=== PATIENT | male | born 1940 | race Caucasian/White ===

== ENCOUNTER 2016-08-07 10:51 | Day surgery (SDC) | payer MEDICARE, OTHER ==
[2016-08-03 09:58] LABS: HEMATOCRIT 44.5 % (40.0-51.0); HEMOGLOBIN 14.8 g/dL (13.6-17.8)
[2016-08-03 10:10] LABS: BUN (BLOOD UREA NITROGEN) 6 MG/DL (6-23); CALCIUM, SERUM 8.5 MG/DL (8.5-10.4); CHLORIDE, SERUM 106 MMOL/L (96-112); CO2 (CARBON DIOXIDE) 28 MMOL/L (24-34); CREATININE 1.03 MG/DL (0.70-1.30); GFR AFRICAN AMERICAN 82 ML/MIN (>=60); GFR NON AFRICAN AMERICAN 71 ML/MIN (>=60); GLUCOSE, SERUM 206 MG/DL (60-99); POTASSIUM, SERUM 4.8 MMOL/L (3.5-5.3); SODIUM, SERUM 141 MMOL/L (135-148)
--- NOTE | ~2016-08-07 | OP ---
Record Of Operation [facility] [address] [place]. [address] NAME: TAMARA BARGER : 42 STATUS : REG [facility] PAT#: [id number] AGE: 76 ADM/REG DATE : 08/07/16 MR#: [id number] REPORT SERV DATE: 08/07/16 DICTATED BY: Wesley FAJARDO DATE: 08/07/16 REPORT STATUS : Draft TRANSCRIBED BY: GIORGIO DATE: 08/07/16 DATE OF PROCEDURE: PREOPERATIVE DIAGNOSIS: Elevated prostate specific antigen. POSTOPERATIVE DIAGNOSIS: Elevated prostate specific antigen, benign prostatic hyperplasia. PROCEDURE: Transrectal ultrasound-guided needle biopsy of the prostate. SURGEON: Wesley Fajardo M.D. ANESTHESIA: MAC. COMPLICATIONS: None. DRAINS: None. BRIEF HISTORY: Mr. Barger is a 76-year-old white male, who underwent biopsy for an elevated PSA on 07/18/2015. 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 His gland measured 45 mL at that time. He is here for followup. 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 Recent PSA is 6.24. The risks of bleeding, infection, anesthesia, injury to adjacent organs, inability to detect the prostate cancer even if present were all discussed. There were no unanswered questions. DESCRIPTION OF PROCEDURE: Under excellent MAC anesthesia, the patient was placed in the left lateral decubitus position. Transrectal ultrasonography was performed and the prostate was enlarged since last year measuring 83 mL, which is quite a jump. One of these, I suspect this an error, but today's measurements looked good. At any rate, there was also some central calcifications. I used the biopsy gun to perform a total of 14 biopsies two from the left base, three from the left mid gland, two from the left apex, and similarly two from the right base, three from the right mid gland, and two from the right apex. The patient tolerated the procedure well and will be discharged in outpatient with the following instructions. DISCHARGE INSTRUCTIONS: 1. Home today. 2. Call for excessive bleeding or fever greater than 101. 3. Followup in my office in one week to review pathology. AL/GIORGIO Wesley Fajardo M.D. Record Of Operation [address] [address] NAME: TAMARA BARGER : 42 STATUS : REG [facility] PAT#: [id number] AGE: 76 ADM/REG DATE : 08/07/16 MR#: [id number] REPORT SERV DATE: 08/07/16 DICTATED BY: Wesley FAJARDO DATE: 08/07/16 REPORT STATUS : Draft TRANSCRIBED BY: VILMAL DATE: 08/07/16 / [id number] CC: Rufus Mathew M.D.
[~2016-08-07 10:51] MED LIST: ANOROELLIPTA INH; ASAB PO; CLOBETASOL0.051 EX; DONNATA1 OR; DONNATAL TAB1 TAB OR; FISH-EPA1000 MG PO; FLOMAX4 PO; FLONASE NAS; GLUCPH PO; HALF81 PO; METAMUCIL CAN7 OZ PO; MIRALAXPKT PO; NEXIUM40 PO; NITROSTAT0.4 MG SL; PRAVACHOL40 MG PO; PRIN10 PO; RESTASIS OPH; SOLARAZE3 %/W TOP; TETRACYCLINE250 MG OR; TRILIPIX135 MG PO; ZANTAC150 MG PO; ZESTRIL10 MG PO
== END 2016-08-07 17:19 | disposition home or self-care (01) ==
LOC: SDC 10:51
PROC: BV49ZZZ Ultrasonography of Prostate and Seminal Vesicles (ICD-10-PCS; 2016-08-07)
PROC: 0V9 Male Reproductive System, Drainage (ICD-10-PCS; principal; 2016-08-07 12:15)
DX: C61 Malignant neoplasm of prostate (principal); N42.89 Other specified disorders of prostate; I10 Essential (primary) hypertension; E11.9 Type 2 diabetes mellitus without complications; E78.5 Hyperlipidemia, unspecified; E78.00 Pure hypercholesterolemia, unspecified; M19.90 Unspecified osteoarthritis, unspecified site; K21.9 Gastro-esophageal reflux disease without esophagitis; H91.93 Unspecified hearing loss, bilateral; Z87.891 Personal history of nicotine dependence; Z88.0 Allergy status to penicillin; Z88.8 Allergy status to other drugs, medicaments and biological substances; Z79.82 Long term (current) use of aspirin; Z79.51 Long term (current) use of inhaled steroids; Z79.84 Long term (current) use of oral hypoglycemic drugs; Z79.899 Other long term (current) drug therapy; Z96.652 Presence of left artificial knee joint; Z98.890 Other specified postprocedural states; Z98.1 Arthrodesis status; Z90.49 Acquired absence of other specified parts of digestive tract; Z98.41 Cataract extraction status, right eye; Z98.42 Cataract extraction status, left eye; Z96.1 Presence of intraocular lens; Z97.4 Presence of external hearing-aid
CPT/HCPCS: 76872; 76942; 80048; 82962; 85014; 85018; 88305; 88344; 93005; A9270-GY